=== PATIENT | female | born 1970 | race Two or more races ===

== ENCOUNTER → 2024-04-16 | Outpatient (CLI) | payer MEDICAID, SELFPAY ==
--- NOTE | 2024-04-16 14:51 | XR_ITS ---
Examination: Abdomen AP single view Technique: AP portable supine abdomen, single view Exam date and time: April 16, 2024 1400 hrs. Indications: Abdominal pain this week. Findings: Nonobstructive bowel gas pattern. No free air. Mildly air distended stomach Impression: Nonobstructive bowel gas pattern
== END | disposition home or self-care (01) ==
PROVIDERS: PCP Surgery; Referring Provider Surgery; Visit Provider Surgery
DX: N20.0 Calculus of kidney (principal)
CPT/HCPCS: 74018